=== PATIENT | female | born 1965 | race American Indian/Alaskan Native ===

== ENCOUNTER 2020-06-02 10:03 | Emergency (ER) | payer SELFPAY ==
[2020-06-02] MEDS ORDERED: ASPIRIN 325 MG TAB PO ONE (10:25)
--- NOTE | 2020-06-02 11:01 | XRay Report ---
CHEST 2 VIEWS INDICATION / CLINICAL INFORMATION: Chest Pain. COMPARISON: None available. FINDINGS: SUPPORT DEVICES: None. HEART / MEDIASTINUM: No significant abnormality. LUNGS / PLEURA: No significant pulmonary or pleural abnormality. .No pneumothorax. ADDITIONAL FINDINGS: No significant additional findings. IMPRESSION: 1. No acute findings. Signer Name: Regulo Richardson MD Signed: 06/02/2020 10:56 AM Workstation Name: [id number]
[2020-06-02 11:25] LABS: Hematocrit 38.1 % (30.3-42.9); Hemoglobin 12.5 gm/dl (10.1-14.3); Mean Corpuscular HGB Conc 33 % (30-34); Mean Corpuscular Volume 85 fl (79-97); Platelet Count 253 K/mm3 (140-440); Red Blood Count 4.46 M/mm3 (3.65-5.03); Red Cell Distribution Width 14.5 % (13.2-15.2)
[2020-06-02 11:40] LABS: BUN/Creatinine Ratio 13; Blood Urea Nitrogen 8 mg/dL (7-17); Calcium 9.7 mg/dL (8.4-10.2); Hemolysis Index 14
--- NOTE | 2020-06-02 12:11 | Emergency Department Report ---
ED Chest Pain HPI - General Chief Complaint: Chest Pain Stated Complaint: LEFT LEG/CHEST PAIN Time Seen by Provider: 06/02/20 12:09 Source: patient Mode of arrival: Ambulatory Limitations: No Limitations - History of Present Illness Initial Comments: This is a 55-year-old female that fell on the stairs approximately 1 week ago. She states that she noticed a bruised area on her leg that was sent apparent yesterday. She has had a minimal amount of left leg/calf swelling but does not complain of pain. She states that her left shoulder has been sore as well for the past few days. He does not complain of active chest pain. Indeed the area of the thorax that was sore is essentially about the left shoulder. She is able to move the shoulder without difficulty but states it is mildly sore. He does not complain of associated symptoms with her pain. She does not complain of dyspnea at all nor chest pain per se. She has had no fever chills or cough. 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 She would like an excuse for work for a few days she states. Complaint: other -: Gradual, days(s) Onset: other (After a fall) Pain Location: other Pain Radiation: none Severity: mild, moderate Quality: other (Soreness) Consistency: intermittent Improves With: nothing Worsens With: nothing - Related Data Previous Rx's Medication Instructions Recorded Last Taken Type Naproxen [Naprosyn] 500 mg PO BID PRN #14 tablet 06/02/20 Unknown Rx Allergies Allergy/AdvReac Type Severity Reaction Status Date / Time No Known Allergies Allergy Unverified 06/02/20 10:19 Heart Score - HEART Score History: Slightly suspicious EKG: Normal Age: < 45 Risk factors: 1-2 risk factors Troponin: < normal limit HEART Score: 1 - Critical Actions Critical Actions: 0-3 pts:0.9-1.7%risk of adverse cardiac event.Candidate for discharge ED Review of Systems ROS: Stated complaint: LEFT LEG/CHEST PAIN Other details as noted in HPI Constitutional: denies: chills, fever Eyes: denies: eye pain, eye discharge, vision change ENT: denies: ear pain, throat pain Respiratory: denies: cough, shortness of breath, wheezing Cardiovascular: as per HPI. denies: palpitations Endocrine: no symptoms reported Gastrointestinal: denies: abdominal pain, nausea, diarrhea Genitourinary: denies: urgency, dysuria, discharge Musculoskeletal: as per HPI. denies: back pain, arthralgia Skin: denies: rash, lesions Neurological: denies: headache, weakness, paresthesias Psychiatric: denies: anxiety, depression Hematological/Lymphatic: denies: easy bleeding, easy bruising ED Past Medical Hx - Past Medical History Previous Medical History?: No - Surgical History Hx Cholecystectomy: Yes - Social History Substance Use Type: None - Medications Home Medications: Home Medications Medication Instructions Recorded Confirmed Last Taken Type Naproxen [Naprosyn] 500 mg PO BID PRN #14 tablet 06/02/20 Unknown Rx ED Physical Exam - General Limitations: Physical Limitation General appearance: alert, in no apparent distress, obese - Head Head exam: Present: atraumatic, normocephalic - Eye Eye exam: Present: normal appearance - ENT ENT exam: Present: mucous membranes moist - Neck Neck exam: Present: normal inspection - Respiratory Respiratory exam: Present: normal lung sounds bilaterally. Absent: respiratory distress - Cardiovascular Cardiovascular Exam: Present: regular rate, normal rhythm. Absent: systolic murmur, diastolic murmur, rubs, gallop - GI/Abdominal GI/Abdominal exam: Present: soft, normal bowel sounds. Absent: distended, tenderness, guarding, rebound - Extremities Exam Extremities exam: Present: normal inspection, normal capillary refill, other (There is an ecchymotic area of the left posterior calf. There is no s ignificant hematoma. There is reproducible soreness about the left shoulder). Absent: pedal edema, joint swelling, calf tenderness - Back Exam Back exam: Present: normal inspection - Neurological Exam Neurological exam: Present: alert, oriented X3, CN II-XII intact. Absent: motor sensory deficit - Psychiatric Psychiatric exam: Present: normal affect, normal mood - Skin Skin exam: Present: warm, dry, intact, normal color. Absent: rash ED Course Vital Signs 06/02/20 10:23 Temperature 98.6 F Pulse Rate 88 Respiratory 18 Rate Blood Pressure 207/99 [Right] O2 Sat by Pulse 97 Oximetry - Reevaluation(s) Reevaluation #1: A Doppler exam of the left leg was negative for DVT. The tech told me that there is perhaps a muscle injury. She also stated that the arteries appeared normal. 06/02/20 13:13 06/02/20 13:13 VIK score - Vik Score Age > 65: (0) No Aspirin use within the Past 7 Days: (0) No 3 or more CAD Risk Factors: (0) No 2 or more Angina events in past 24 hrs: (0) No Known CAD with more than 50% Stenosis: (0) No Elevated Cardiac Markers: (0) No ST Deviation Greater than 0.5mm: (0) No VIK Score: 0 ED Medical Decision Making - Lab Data Result diagrams: 06/02/20 11:09 06/02/20 11:09 Laboratory Results - last 24 hr 06/02/20 06/02/20 11:09 11:09 WBC 6.8 RBC 4.46 Hgb 12.5 Hct 38.1 MCV 85 MCH 28 MCHC 33 RDW 14.5 Plt Count 253 Add Manual Diff Complete Total Counted 100 Seg Neuts % (Manual) 65.0 Band Neutrophils % 1.0 Lymphocytes % (Manual) 29.0 Reactive Lymphs % (Man) 0 Monocytes % (Manual) 4.0 Eosinophils % (Manual) 1.0 Basophils % (Manual) 0 Metamyelocytes % 0 Myelocytes % 0 Promyelocytes % 0 Blast Cells % 0 Nucleated RBC % Not Reportable Seg Neutrophils # Man 4.4 Band Neutrophils # 0.1 Lymphocytes # (Manual) 2.0 Abs React Lymphs (Man) 0.0 Monocytes # (Manual) 0.3 Eosinophils # (Manual) 0.1 Basophils # (Manual) 0.0 Metamyelocytes # 0.0 Myelocytes # 0.0 Promyelocytes # 0.0 Blast Cells # 0.0 WBC Morphology Not Reportable Hypersegmented Neuts Not Reportable Hyposegmented Neuts Not Reportable Hypogranular Neuts Not Reportable Smudge Cells Not Reportable Toxic Granulation Not Reportable Toxic Vacuolation Not Reportable Dohle Bodies Not Reportable Pelger-Huet Anomaly Not Reportable Jose Rods Not Reportable Platelet Estimate Consistent w auto Clumped Platelets Not Reportable Plt Clumps, EDTA Not Reportable Large Platelets Not Reportable Giant Platelets Not Reportable Platelet Satelliting Not Reportable Plt Morphology Comment Not Reportable RBC Morphology Normal Dimorphic RBCs Not Reportable Polychromasia Not Reportable Hypochromasia Not Reportable Poikilocytosis Not Reportable Anisocytosis Not Reportable Microcytosis Not Reportable Macrocytosis Not Reportable Spherocytes Not Reportable Pappenheimer Bodies Not Reportable Sickle Cells Not Reportable Target Cells Not Reportable Tear Drop Cells Not Reportable Ovalocytes Not Reportable Helmet Cells Not Reportable Chery-[place] Bodies Not Reportable [place] Rings Not Reportable [place] Cells Not Reportable Bite Cells Not Reportable Crenated Cell Not Reportable Elliptocytes Not Reportable Acanthocytes (Spur) Not Reportable Rouleaux Not Reportable Hemoglobin C Crystals Not Reportable Schistocytes Not Reportable Malaria parasites Not Reportable Jay Bodies Not Reportable Hem Pathologist Commnt No Sodium 136 L Potassium 4.4 Chloride 102.4 Carbon Dioxide 22 Anion Gap 16 BUN 8 Creatinine 0.6 Estimated GFR > 60 BUN/Creatinine Ratio 13 Glucose 93 Calcium 9.7 Troponin T < 0.010 - EKG Data -: EKG Interpreted by Me EKG shows normal: sinus rhythm, axis, intervals, QRS complexes, ST-T waves Rate: normal - EKG Data Interpretation: normal EKG - Radiology Data Radiology results: report reviewed (Chest x-ray no acute process) Critical care attestation.: If time is entered above; I have spent that time in minutes in the direct care of this critically ill patient, excluding procedure time. ED Disposition Clinical Impression: Musculoskeletal pain of left lower extremity Left shoulder pain Qualifiers: Chronicity: chronic Qualified Code(s): M25.512 - Pain in left shoulder; G89.29 - Other chronic pain Disposition: DC-01 TO HOME OR SELFCARE Is pt being admited?: No Does the pt Need Aspirin: No Condition: Stable Instructions: Musculoskeletal Pain (ED) Additional Instructions: Further evaluation with the orthopedist would be recommended any persistent symptoms. Also follow-up with primary care physician. If you do not have Lyme there are referrals. Prescriptions: Naproxen [Naprosyn] 500 mg PO BID PRN #14 tablet PRN Reason: Pain, Moderate (4-6) Referrals: AUSTIN GRACIA MD [Staff Physician] - 3-5 Days ARNODLO SILVER MD [Staff Physician] - 3-5 Days [facility] [Provider Group] - 2-3 Days Time of Disposition: 13:17
[2020-06-02 12:53] LABS: Total Cells Counted 100
[2020-06-02 12:57] LABS: Band Neutrophils # (Manual) 0.1 K/mm3; Basophils % (Manual) 0 % (0.0-1.8)
[2020-06-02 12:58] LABS: Platelet Estimate Consistent w Auto; RBC Morphology Normal
--- NOTE | 2020-06-02 13:05 | Vascular Lab Report ---
DUPLEX DOPPLER LOWER EXTREMITY VEINS, LEFT INDICATION / CLINICAL INFORMATION: Left leg pain and swelling. TECHNIQUE: Duplex doppler imaging was performed through the veins of the left lower extremity using venous compr ession and other maneuvers. COMPARISON: None available. FINDINGS: LEFT COMMON FEMORAL VEIN: Negative. LEFT FEMORAL VEIN: Negative. LEFT POPLITEAL VEIN: Negative. LEFT CALF VEINS: Negative. ADDITIONAL FINDINGS: None. IMPRESSION: 1. No sonographic evidence for DVT in the left lower extremity. Signer Name: Frandy Lugo MD Signed: 06/02/2020 1:00 PM Workstation Name: [id number]
[2020-06-02 17:32] VITALS: BP 174/81
== END 2020-06-02 14:05 | disposition home or self-care (01) ==
LOC: ED 10:03
DX: M79.605 Pain in left leg (principal); M25.512 Pain in left shoulder; Z79.899 Other long term (current) drug therapy; Z90.49 Acquired absence of other specified parts of digestive tract
CPT/HCPCS: 36415; 71046; 80048; 84484; 85007; 85025; 93005

== ENCOUNTER 2021-06-05 17:19 | Emergency (ER) | payer OTHER ==
[2021-06-05 17:27] VITALS: BP 190/111
[2021-06-05] MEDS ORDERED: FAMOTIDINE 20 MG/2 ML INJ IV ONE (20:27)
[2021-06-05] MEDS ORDERED: ALUM-MAG HYDROXIDE-SIMETHICONE 200-200-20MG/5ML ORAL LIQD 30 ML PO ONE (20:27)
[2021-06-05] MEDS ORDERED: LIDOCAINE VISCOUS 2% 15 ML ORAL LIQD PO ONE (20:27)
[2021-06-05] MEDS ORDERED: ONDANSETRON 4 MG/2 ML INJ IV ONE (20:28)
[2021-06-05] MEDS ORDERED: DICYCLOMINE 20 MG TAB PO ONE (20:28)
--- NOTE | 2021-06-05 20:31 | Event Note ---
ED Screening Note Date of service: 06/05/21 Time: 20:29 ED Screening Note: Patient is a 56-year-old -[place] female with a history of morbid obesity and status post lap cholecystectomy presents to the ED with complaint of acute onset persistent epigastric pain that radiates to the right upper quadrant and right shoulder with nausea for the last 4 days. Patient states that the pain gets worse with food. Patient denies vomiting, chest pain, shortness of breath, dizziness, syncope, change in vision, cough, sore throat, hematemesis, dysuria, urinary frequency and urgency, diarrhea, vaginal bleeding or low back pain, traumatic injury or heavy lifting. This initial assessment/diagnostic orders/clinical plan/treatment(s) is/are subject to change based on patients health status, clinical progression and re- assessment by fellow clinical providers in the ED. Further treatment and workup at subsequent clinical providers discretion. Patient/guardian urged not to elope from the ED as their condition may be serious if not clinically assessed and managed. Initial orders include: CBC, CMP, lipase, UA, EKG, troponin,
[2021-06-05 20:58] LABS: Hematocrit 38.3 % (30.3-42.9); Hemoglobin 12.7 gm/dl (10.1-14.3); Mean Corpuscular HGB Conc 33 % (30-34); Mean Corpuscular Volume 85 fl (79-97); Platelet Count 252 K/mm3 (140-440); Red Blood Count 4.51 M/mm3 (3.65-5.03); Red Cell Distribution Width 14.7 % (13.2-15.2)
[2021-06-05 21:11] LABS: Bilirubin,Urine NEG (Negative); Blood,Urine NEG (Negative); Color,Urine Straw (Yellow); Mucus,Urine FEW /HPF; Protein,Urine <15 mg/dL mg/dL (Negative); Urobilinogen,Urine < 2.0 mg/dL (<2.0)
[2021-06-05 21:20] LABS: Alanine Aminotransferase 14 units/L (7-56); Albumin 4.5 g/dL (3.9-5); Blood Urea Nitrogen 7 mg/dL (7-17); Calcium 10.1 mg/dL (8.4-10.2); Hemolysis Index 7
[2021-06-05 21:21] LABS: BUN/Creatinine Ratio 10
[2021-06-05 22:07] LABS: Myelocytes # (Manual) 0.1 K/mm3; Total Cells Counted 100
[2021-06-05 22:08] LABS: Ovalocytes 1+; Platelet Estimate Consistent w Auto
[2021-06-05] MEDS ORDERED: ACETAMINOPHEN 500 MG TAB PO ONE (23:12)
--- NOTE | 2021-06-05 23:12 | Cat Scan Report ---
CT ABDOMEN AND PELVIS WITH IV CONTRAST INDICATION: RUQ and Epigastric pain. COMPARISON: None available. TECHNIQUE: All CT scans at this facility use dose modulation, automated exposure control, iterative reconstructi on or weight based dosing, when appropriate, to reduce radiation dose to as low as reasonably achieva ble. FINDINGS: Lung Bases: No significant abnormality. Skeletal System: No acute abnormality. ABDOMEN: Liver: No significant abnormality. Gallbladder: Removed. Bile Ducts: No significant abnormality. Adrenals: No significant abnormality. Right Kidney: No significant abnormality. Left Kidney: Absent. Pancreas: No significant abnormality. Spleen: No significant abnormality. Upper GI tract: No significant abnormality. Lymph Nodes: No significant adenopathy. Aorta: No significant abnormality. 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 PELVIS: Colon: No acute abnormality. Urinary Bladder and Distal Ureters: No significant abnormality. Appendix: No significant abnormality. Lymph Nodes: No significant adenopathy. Additional Findings: There is a 3.3 cm left ovarian cyst. 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 IMPRESSION: 1. No acute process in the abdomen or pelvis. 2. Incidental findings, as above. Signer Name: Riky Patel MD Signed: 06/05/2021 11:07 PM Workstation Name: [id number]
--- NOTE | 2021-06-05 23:19 | Emergency Department Report ---
ED Abdominal Pain HPI - General Chief Complaint: Abdominal Pain Stated Complaint: RT UNDER BREAST PAIN PUI?: No Time Seen by Provider: 06/05/21 22:49 Source: patient Mode of arrival: Ambulatory Limitations: No Limitations - History of Present Illness Initial Comments: Chief complaint "hurting in my stomach" HPI: This is a 56-year-old female with history of hypertension, cholecystectomy who presents with epigastric pain which began on Sunday. Patient had gas after eating shrimp. There is a turning burning sensation. At times it radiates to the right upper quadrant right flank. After eating soul a few days ago including turkey meatball mac & cheese cornbread she felt sick again. She forced herself to vomit which improved her pain. Sunday morning she had bloating epigastric tightening pain which worsened after drinking coffee and cream. She is fully vaccinated against COVID-19 with additional booster shot. No family history of cardiac disease. Father of dementia complications. 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 Complaint: abdominal pain -: Gradual, days(s) (6 days ago) Location: epigastric Radiation: R flank Migration to: RUQ Severity: mild, moderate Severity scale (0 -10): 4 Quality: dull Consistency: intermittent Improves With: vomiting Worsens With: eating Associated Symptoms: denies other symptoms - Related Data Previous Rx's Medication Instructions Recorded Last Taken Type Naproxen [Naprosyn] 500 mg PO BID PRN #14 tablet 06/02/20 Unknown Rx Omeprazole 40 mg PO DAILY 30 Days #30 06/05/21 Unknown Rx capsule. Allergies Allergy/AdvReac Type Severity Reaction Status Date / Time No Known Allergies Allergy Verified 06/05/21 17:21 ED Review of Systems ROS: Stated complaint: RT UNDER BREAST PAIN Other details as noted in HPI Comment: All other systems reviewed and negative Constitutional: denies: chills, fever, malaise Respiratory: denies: cough, shortness of breath Cardiovascular: denies: chest pain Gastrointestinal: abdominal pain. denies: nausea, vomiting, diarrhea ED Past Medical Hx - Past Medical History Previous Medical History?: Yes Hx Hypertension: Yes - Surgical History Past Surgical History?: Yes Hx Cholecystectomy: Yes - Family History Family history: cancer (Colon cancer) - Social History Smoking Status: Never Smoker Substance Use Type: None - Medications Home Medications: Home Medications Medication Instructions Recorded Confirmed Last Taken Type Naproxen [Naprosyn] 500 mg PO BID PRN #14 tablet 06/02/20 Unknown Rx Omeprazole 40 mg PO DAILY 30 Days #30 06/05/21 Unknown Rx capsule. ED Physical Exam - General Limitations: No Limitations General appearance: alert, in no apparent distress - Head Head exam: Present: atraumatic, normocephalic - Eye Eye exam: Present: normal appearance - ENT ENT exam: Present: mucous membranes moist - Neck Neck exam: Present: normal inspection, full ROM - Respiratory Respiratory exam: Present: normal lung sounds bilaterally. Absent: respiratory distress, wheezes, rales, rhonchi - Cardiovascular Cardiovascular Exam: Present: regular rate, normal rhythm, normal heart sounds. Absent: systolic murmur, diastolic murmur, rubs, gallop - GI/Abdominal GI/Abdominal exam: Present: soft, normal bowel sounds. Absent: distended, tenderness, guarding, rebound - Extremities Exam Extremities exam: Present: normal inspection - Neurological Exam Neurological exam: Present: alert, oriented X3 - Psychiatric Psychiatric exam: Present: normal affect, normal mood - Skin Skin exam: Present: warm, dry, intact, normal color. Absent: rash ED Course Vital Signs 06/05/21 17:23 Temperature 98.6 F Pulse Rate 92 H Respiratory 20 Rate Blood Pressure 190/111 [Right] O2 Sat by Pulse 96 Oximetry ED Medical Decision Making - Lab Data Result diagrams: 06/05/21 20:33 06/05/21 20:33 Laboratory Results - last 24 hr 06/05/21 06/05/21 06/05/21 20:33 20:33 Unknown WBC 7.5 RBC 4.51 Hgb 12.7 Hct 38.3 MCV 85 MCH 28 MCHC 33 RDW 14.7 Plt Count 252 Add Manual Diff Complete Total Counted 100 Seg Neuts % (Manual) 63.0 Lymphocytes % (Manual) 30.0 Reactive Lymphs % (Man) 1.0 Monocytes % (Manual) 5.0 Myelocytes % 1.0 Nucleated RBC % Not Reportable Seg Neutrophils # Man 4.7 Band Neutrophils # 0.0 Lymphocytes # (Manual) 2.3 Abs React Lymphs (Man) 0.1 Monocytes # (Manual) 0.4 Eosinophils # (Manual) 0.0 Basophils # (Manual) 0.0 Metamyelocytes # 0.0 Myelocytes # 0.1 Promyelocytes # 0.0 Blast Cells # 0.0 WBC Morphology Not Reportable Hypersegmented Neuts Not Reportable Hyposegmented Neuts Not Reportable Hypogranular Neuts Not Reportable Smudge Cells Not Reportable Toxic Granulation Not Reportable Toxic Vacuolation Not Reportable Dohle Bodies Not Reportable Pelger-Huet Anomaly Not Reportable Jose Rods Not Reportable Platelet Estimate Consistent w auto Clumped Platelets Not Reportable Plt Clumps, EDTA Not Reportable Large Platelets Not Reportable Giant Platelets Not Reportable Platelet Satelliting Not Reportable Plt Morphology Comment Not Reportable RBC Morphology Not Reportable Dimorphic RBCs Not Reportable Polychromasia Not Reportable Hypochromasia Not Reportable Poikilocytosis Not Reportable Anisocytosis Not Reportable Microcytosis Not Reportable Macrocytosis Not Reportable Spherocytes Not Reportable Pappenheimer Bodies Not Reportable Sickle Cells Not Reportable Target Cells Not Reportable Tear Drop Cells Not Reportable Ovalocytes 1+ Helmet Cells Not Reportable Chery-[place] Bodies Not Reportable [place] Rings Not Reportable [place] Cells Not Reportable Bite Cells Not Reportable Crenated Cell Not Reportable Elliptocytes Not Reportable Acanthocytes (Spur) Not Reportable Rouleaux Not Reportable Hemoglobin C Crystals Not Reportable Schistocytes Not Reportable Malaria parasites Not Reportable Jay Bodies Not Reportable Hem Pathologist Commnt No Sodium 142 Potassium 4.0 Chloride 102.3 Carbon Dioxide 25 Anion Gap 19 BUN 7 Creatinine 0.7 Estimated GFR > 60 BUN/Creatinine Ratio 10 Glucose 96 Calcium 10.1 Total Bilirubin 0.40 AST 18 ALT 14 Alkaline Phosphatase 87 Troponin T < 0.010 Total Protein 7.3 Albumin 4.5 Albumin/Globulin Ratio 1.6 Lipase 25 Urine Color Straw Urine Turbidity Clear Urine pH 6.0 Ur Specific [place] 1.008 Urine Protein <15 mg/dl Urine Glucose (UA) Neg Urine Ketones Neg Urine Blood Neg Urine Nitrite Neg Urine Bilirubin Neg Urine Urobilinogen < 2.0 Ur Leukocyte Esterase Neg Urine WBC (Auto) 1.0 Urine RBC (Auto) 2.0 U Epithel Cells (Auto) 4.0 Urine Mucus Few - Radiology Data Radiology results: report reviewed Patient Name: ASHLEY WARREN Gender: Female Date of : 1965 Referring Provider: RADHA ARREOLA Organization: [facility] Accession Number: [id number] Requested Date: June 05, 2021 20:28 Report Status: Final Requested Procedure: 1 Procedure Description: CT abdomen pelvis w con Modality: CT Findings Reporting MD: Riky Patel Dictation Time: June 05, 2021 22:07 Deli Manager: Not available Operations Asst Date: CT ABDOMEN AND PELVIS WITH IV CONTRAST INDICATION: RUQ and Epigastric pain. COMPARISON: None available. TECHNIQUE: All CT scans at this facility use dose modulation, automated exposure control, iterative reconstruction or weight based dosing, when appropriate, to reduce radiation dose to as low as reasonably achievable. FINDINGS: Lung Bases: No significant abnormality. Skeletal System: No acute abnormality. ABDOMEN: Liver: No significant abnormality. Gallbladder: Removed. Bile Ducts: No significant abnormality. Adrenals: No significant abnormality. Right Kidney: No significant abnormality. Left Kidney: Absent. Pancreas: No significant abnormality. Spleen: No significant abnormality. Upper GI tract: No significant abnormality. Lymph Nodes: No significant adenopathy. Aorta: No significant abnormality. 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 PELVIS: Colon: No acute abnormality. Urinary Bladder and Distal Ureters: No significant abnormality. Appendix: No significant abnormality. Lymph Nodes: No significant adenopathy. Additional Findings: There is a 3.3 cm left ovarian cyst. 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 IMPRESSION: 1. No acute process in the abdomen or pelvis. 2. Incidental findings, as above. - Medical Decision Making 1. Clinical impression: Peptic ulcer disease, prescribed omeprazole, patient had full work-up. EKG without ischemic changes. CBC chemistry troponin all within normal limits. CT abdomen pelvis did not reveal acute inflammatory obstructive process. She did have incidental finding of the 3.3 ovarian cyst. Urinalysis unremarkable. Recommended follow-up with PCP. Recommend completing 30-day therapy omeprazole. Recommended following up with her PCP Dr. Dumont for potential H. pylori testing. 2. Asymptomatic hypertensive urgency: I recommended resuming outpatient medication prescribed to her by her PCP. 3. Ovarian cyst incidental finding I advised patient to inform her personal steelscope operator Preet Stout of this finding Critical care attestation.: If time is entered above; I have spent that time in minutes in the direct care of this critically ill patient, excluding procedure time. ED Disposition Clinical Impression: Peptic ulcer disease, Hypertensive urgency, Ovarian cyst Disposition: 01 HOME / SELF CARE / HOMELESS Is pt being admited?: No Does the pt Need Aspirin: No Condition: Stable Instructions: Abdominal Pain (ED), Peptic Ulcer, [id number], Ovarian Cyst, [id number] Prescriptions: Omeprazole 40 mg PO DAILY 30 Days #30 capsule.dr Referrals: ARNOLDO HUGHES MD [Primary Care Provider] - 3-5 Days
--- NOTE | 2021-06-07 19:04 | Electrocardiograph Report ---
[facility] Test Date: 2021-06-05 Test Time: 22:00:04 Pat Name: ASHLEY WARREN Department: Room: Gender: F Printing Specialist: NURSE : 1965 Requested By: YORDY GONZALES Order Number: [id number] Reading MD: Marta Rutherford Measurements Intervals [place] Rate: 67 P: 58 NC: 125 QRS: 10 QRSD: 81 T: 32 QT: 389 QTc: 412 Interpretive Statements Sinus rhythm Probable left atrial enlargement No previous ECG available for comparison Electronically Signed On 06-07-2021 19:04:22 EDT by Marta Rutherford
== END 2021-06-06 | disposition home or self-care (01) ==
LOC: ED 17:19
DX: K27.1 Acute peptic ulcer, site unspecified, with perforation (principal); N83.209 Unspecified ovarian cyst, unspecified side; I16.0 Hypertensive urgency; Z90.49 Acquired absence of other specified parts of digestive tract
CPT/HCPCS: 36415; 74177; 80053; 81001; 83690; 84484; 85007; 85025; 93005; 96374; 96375; 99284; J2405; Q9967

== ENCOUNTER 2021-12-01 17:26 | Emergency (ER) | payer OTHER ==
[2021-12-01 18:27] VITALS: BP 157/89
--- NOTE | 2021-12-01 20:58 | Emergency Department Report ---
ED Female HPI - General Chief complaint: Urogenital-Female Stated complaint: UTI Time Seen by Provider: 12/01/21 20:44 Source: patient Mode of arrival: Ambulatory Limitations: No Limitations - History of Present Illness Initial comments: Patient 56-year-old female with history of hypertension who presents for urinary frequency urgency and dysuria. Patient denies hematuria. There is no back pain no fevers no chills no history of renal stones. Symptoms are exacerbated by voiding. Symptoms are relieved by nothing tried patient denies vaginal disc harge. States she believes she has a UTI. MD Complaint: dysuria - Related Data Previous Rx's Medication Instructions Recorded Last Taken Type Naproxen [Naprosyn] 500 mg PO BID PRN #14 tablet 06/02/20 Unknown Rx Omeprazole 40 mg PO DAILY 30 Days #30 06/05/21 Unknown Rx capsule. cephALEXin [Keflex] 500 mg PO BID 7 Days #14 cap 12/01/21 Unknown Rx metroNIDAZOLE [metroNIDAZOLE 1 applicatio VG QHS 7 Days #1 tube 12/01/21 Unknown Rx VAGINAL 0.75% gel] Allergies Allergy/AdvReac Type Severity Reaction Status Date / Time No Known Allergies Allergy Verified 06/05/21 17:21 ED Review of Systems ROS: Stated complaint: UTI Other details as noted in HPI Constitutional: denies: chills, fever Eyes: denies: eye pain, eye discharge, vision change ENT: denies: ear pain, throat pain Respiratory: denies: cough, shortness of breath, wheezing Cardiovascular: denies: chest pain, palpitations Endocrine: no symptoms reported Gastrointestinal: denies: abdominal pain, nausea, vomiting, diarrhea Genitourinary: urgency, dysuria, frequency. denies: hematuria, discharge Musculoskeletal: back pain Skin: as per HPI Neurological: denies: headache, weakness, paresthesias Psychiatric: denies: anxiety, depression Hematological/Lymphatic: denies: easy bleeding, easy bruising ED Past Medical Hx - Past Medical History Hx Hypertension: Yes - Surgical History Hx Cholecystectomy: Yes Additional Surgical History: gallbladder - Social History Smoking Status: Never Smoker Substance Use Type: None - Medications Home Medications: Home Medications Medication Instructions Recorded Confirmed Last Taken Type Naproxen [Naprosyn] 500 mg PO BID PRN #14 tablet 06/02/20 Unknown Rx Omeprazole 40 mg PO DAILY 30 Days #30 06/05/21 Unknown Rx capsule.dr cephALEXin [Keflex] 500 mg PO BID 7 Days #14 cap 12/01/21 Unknown Rx metroNIDAZOLE [metroNIDAZOLE 1 applicatio VG QHS 7 Days #1 tube 12/01/21 Unknown Rx VAGINAL 0.75% gel] ED Physical Exam - General Limitations: No Limitations General appearance: alert, in no apparent distress - Head Head exam: Present: atraumatic, normocephalic - Eye Eye exam: Present: normal appearance, EOMI Pupils: Present: normal accommodation - ENT ENT exam: Present: normal exam - Neck Neck exam: Present: normal inspection, full ROM. Absent: tenderness - Respiratory Respiratory exam: Present: normal lung sounds bilaterally. Absent: respiratory distress, wheezes - Cardiovascular Cardiovascular Exam: Present: regular rate, normal rhythm, normal heart sounds. Absent: systolic murmur, diastolic murmur, rubs, gallop - GI/Abdominal GI/Abdominal exam: Present: soft, normal bowel sounds. Absent: distended, tenderness, guarding, rebound, rigid, bruit, hernia - Rectal Rectal exam: Present: deferred - Extremities Exam Extremities exam: Present: normal inspection, full ROM, normal capillary refill - Back Exam Back exam: Present: normal inspection, full ROM. Absent: CVA tenderness (R), CVA tenderness (L) - Neurological Exam Neurological exam: Present: alert, oriented X3, CN II-XII intact, normal gait - Psychiatric Psychiatric exam: Present: normal affect, normal mood - Skin Skin exam: Present: warm, dry, intact, normal color. Absent: rash ED Course Vital Signs 12/01/21 18:24 Temperature 98.4 F Pulse Rate 88 Respiratory 18 Rate Blood Pressure 157/89 O2 Sat by Pulse 100 Oximetry ED Medical Decision Making - Lab Data Labs 12/01/21 Unknown Urine Color Straw Urine Turbidity Clear Urine pH 8.0 H Ur Specific [place] 1.005 Urine Protein <15 mg/dl Urine Glucose (UA) Neg Urine Ketones Neg Urine Blood Neg Urine Nitrite Neg Urine Bilirubin Neg Urine Urobilinogen < 2.0 Ur Leukocyte Esterase Neg Urine WBC (Auto) 1.0 Urine RBC (Auto) < 1.0 U Epithel Cells (Auto) 2.0 Urine Mucus Few - Medical Decision Making UA noted above, given symptoms dysuria frequency urgency and dysuria we will treat with Keflex, patient will follow-up with primary care doctor in 2 to 3 days. Patient verbalized agreement understanding of discharge plan. Patient DC'd home in stable condition at this time. Critical care attestation.: If time is entered above; I have spent that time in minutes in the direct care of this critically ill patient, excluding procedure time. ED Disposition Clinical Impression: Dysuria Disposition: 01 HOME / SELF CARE / HOMELESS Is pt being admited?: No Does the pt Need Aspirin: No Condition: Stable Instructions: Dysuria Additional Instructions: Take medications as prescribed, follow-up with your doctor in 2 to 3 days. Return to emergency department should symptoms worsen. Prescriptions: metroNIDAZOLE [metroNIDAZOLE VAGINAL 0.75% gel] 1 applicatio VG QHS 7 Days #1 tube cephALEXin [Keflex] 500 mg PO BID 7 Days #14 cap Referrals: CARLOS PAYTON MD [Staff Physician] - 3-5 Days Forms: Work/School Release Form(ED) Time of Disposition: 21:49
[2021-12-01 21:34] LABS: Bilirubin,Urine NEG (Negative); Blood,Urine NEG (Negative); Color,Urine Straw (Yellow); Mucus,Urine FEW /HPF; Protein,Urine <15 mg/dL mg/dL (Negative); RBC,Urine < 1.0 /HPF (0.0-6.0); Urobilinogen,Urine < 2.0 mg/dL (<2.0)
== END 2021-12-01 23:50 | disposition home or self-care (01) ==
LOC: ED 17:26
DX: R30.0 Dysuria (principal); I10 Essential (primary) hypertension; Z90.49 Acquired absence of other specified parts of digestive tract
CPT/HCPCS: 81001; 99282; 99283